=== PATIENT | male | born 1960 | race Caucasian/White ===

== ENCOUNTER 2021-06-26 17:16 | Emergency (ER) | payer OTHER ==
[2021-06-26 18:18] LABS: HEMOGLOBIN 16.5 gm/dl (14.0-17.5); RED BLOOD COUNT 5.4 M/UL (4.20-5.50)
[2021-06-26 18:50] LABS: BUN/CREATININE RATIO 16 (0-10)
[2021-06-26] MEDS ORDERED: IBUPROFEN600 MG PO (21:28)
== END 2021-06-26 21:44 | disposition home or self-care (01) ==
LOC: ER1 17:16
PROVIDERS: Nurse Practitioner
DX: R10.11 Right upper quadrant pain (principal); R07.9 Chest pain, unspecified; M54.9 Dorsalgia, unspecified; M54.6 Pain in thoracic spine; M54.50 Low back pain, unspecified; E11.9 Type 2 diabetes mellitus without complications; Z79.4 Long term (current) use of insulin; Z79.84 Long term (current) use of oral hypoglycemic drugs; V49.9XXA Car occupant (driver) (passenger) injured in unspecified traffic accident, initial encounter
CPT/HCPCS: 70450; 71250; 72125; 72128; 72131; 80053; 81001; 82550; 82553; 84484; 85025; 85610; 93005; 99284; Q9967